=== PATIENT | female | born 1985 ===

== ENCOUNTER → 2021-06-15 | Outpatient (CLI) | payer OTHER ==
--- NOTE | 2021-06-15 16:42 | RAD ---
EXAMINATION: US PELVIS COMPLETE (PELVIC ULTRASOUND) CLINICAL HISTORY: IUD placement. TECHNIQUE: Sonography of the pelvis was performed by transabdominal technique only. COMPARISON: None FINDINGS: Uterus: 8.7 x 3.6 x 2.1 cm - Myometrium: Nonspecific tiny myometrial echogenicities in the uterine body. - Endometrium: Partially visualized intrauterine contraceptive device. - Cervix: Normal Right ovary: 3.7 x 2.7 x 1.8 cm - Normal sonographic appearance and blood flow. Left ovary: 3.9 x 2.6 x 1.8 cm - Normal sonographic appearance and blood flow. Pelvic free fluid: None. IMPRESSION: Partially visualized intrauterine contraceptive device. Nonspecific tiny myometrial echogenicities in the uterine body. Electronically signed by: Henry Corral DO (06/15/2021 4:40 PM) [id number]
== END ==
LOC: US 15:05
PROVIDERS: ATTEND Physician Assistant
DX: Z30.433 Encounter for removal and reinsertion of intrauterine contraceptive device (principal)
CPT/HCPCS: 76856